=== PATIENT | male | born 1975 | race Caucasian/White ===

== ENCOUNTER 2016-05-25 09:32 | Emergency (ER) | payer BC ==
[~2016-05-25] VITALS: Ht 188 cm; Wt 104.8 kg
[~2016-05-25 09:32] MED LIST: ADVIL,NUPRIN,M200 MG PO; CLEOCIN300 MG PO; FLEXERIL10 MG PO; INDOCIN25 MG PO; NORCO 7.5/321 TABLET PO; PERCOCET 5/31 TABLET PO; ROXICODONE5 MG PO; ULTRAM50 MG PO; VALIUM5 MG PO
[2016-05-25] MEDS ORDERED: IBUPROFEN200 M1 PO (09:48)
[2016-05-25 10:35] LABS: BASOPHIL COUNT 0.1 K/uL (0-0.1); EOSINOPHIL (%) 4.2 % (0-5); EOSINOPHIL COUNT 0.3 K/uL (0-0.3); HEMATOCRIT 41.5 % (38.0-50.0); IMMATURE GRANULOCYTE (%) 0.1 % (0.0-0.7); IMMATURE GRANULOCYTE COUNT 0.1 K/uL; LYMPHOCYTE COUNT 2.5 K/uL (1.0-2.8); MCH 30.6 PG (29.0-34.0); MCHC 36.4 G/DL (30.0-36.0); MONOCYTE (%) 9.8 % (3-12); MONOCYTE COUNT 0.8 K/uL (0-0.8); NEUTROPHIL (%) 52.8 % (45-76); NEUTROPHIL COUNT 4.1 K/uL (1.8-6.4); PLATELET COUNT 170 K/uL (156-360); RBC DIS.WIDTH-CV 12.5 % (11.8-14.6); RBC DIS.WIDTH-SD 37.6 % (39-53); RED BLOOD COUNT 4.94 M/uL (4.00-5.50); WHITE BLOOD COUNT 7.7 K/uL (4.1-10.2)
[2016-05-25 10:44] LABS: CHLORIDE 106 mEq/L (99-109); POTASSIUM 4.4 mEq/L (3.7-5.4); SODIUM 140 mEq/L (136-147)
[2016-05-25 10:47] LABS: GLUCOSE 99 mg/dL (70-99)
[2016-05-25 10:48] LABS: ANION GAP 10 MEQ/L (2-14); TOTAL BILIRUBIN 0.3 mg/dL (0.0-1.0)
[2016-05-25 10:50] LABS: ALKALINE PHOSPHATASE 75 IU/L (3-129); GFR ESTIMATE (CALCULATED) > 59 mL/min/
[2016-05-25 10:51] LABS: UREA NITROGEN (BUN) 15 mg/dL (9-23)
[2016-05-25] MEDS ORDERED: OXAYDO5 MG PO (14:18)
[2016-05-25] MEDS ORDERED: PROCTO PAK PR (14:18)
[2016-05-25] MEDS ORDERED: COLACE100 MG PO (14:18)
[2016-05-25 14:55] VITALS: BP 141/91
== END 2016-05-25 14:57 | disposition home or self-care (01) ==
LOC: EME 09:32
PROVIDERS: Emergency Medicine
DX: K64.8 Other hemorrhoids (principal); F17.200 Nicotine dependence, unspecified, uncomplicated; Z88.6 Allergy status to analgesic agent; Z71.6 Tobacco abuse counseling
CPT/HCPCS: 80053; 85025; 86850; 86900; 86901; 99281; 99285; J1170; J1885; J2405; J7030